=== PATIENT | male | born 1995 | race Caucasian/White ===

== ENCOUNTER 2017-07-18 10:31 | Emergency (ER) | payer SELFPAY ==
[2017-07-18 11:27] VITALS: BP 128/75
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
--- NOTE | 2017-07-18 12:26 | RAD ---
Indication: Back pain. 2 views of the thoracic spine are reviewed. There is scoliosis of the thoracic spine with no definite evidence of compression. The pedicles are not splayed. Disc spaces all well-preserved. IMPRESSION: Levoscoliosis of the thoracic spine without definite evidence of fracture.
== END 2017-07-18 13:09 | disposition home or self-care (01) ==
LOC: UCEAST 10:31
DX: S73.101A Unspecified sprain of right hip, initial encounter (principal); V47.5XXA Car driver injured in collision with fixed or stationary object in traffic accident, initial encounter; Y93.9 Activity, unspecified; Y92.410 Unspecified street and highway as the place of occurrence of the external cause; Y99.9 Unspecified external cause status; Z88.1 Allergy status to other antibiotic agents
CPT/HCPCS: 72070; 99201; G0463